=== PATIENT | female | born 1945 | race Two or more races ===

== ENCOUNTER 2017-12-28 08:45 | Outpatient (RCR) | payer OTHER ==
[~2017-12-28 08:45] MED LIST: BRIMONIDINE TART5 ML BOTH EYES; CALCIUM + VITA1 EAC1 PO; CRESTOR10 M1 PO; FISH OIL500 M2 PO; NORVASC5 MG PO; TIMOPTIC 0.5%1 DRO1 BOTH EYES; VITAMIN D1000 UNI1 ORAL
== END 2018-01-23 | disposition home or self-care (01) ==
LOC: PTY 08:45
PROVIDERS: ATTEND Internal Medicine
DX: R26.89 Other abnormalities of gait and mobility (principal); E88.89 Other specified metabolic disorders; W19.XXXD Unspecified fall, subsequent encounter

== ENCOUNTER 2018-01-25 10:15 | Outpatient (RCR) | payer OTHER | END 2018-02-23 | disposition home or self-care (01) | LOC: PTY 10:15 | PROVIDERS: ATTEND Internal Medicine | DX: R26.9 Unspecified abnormalities of gait and mobility (principal); W19.XXXD Unspecified fall, subsequent encounter ==